=== PATIENT | male | born 1980 | race Two or more races ===

== ENCOUNTER 2017-02-18 06:15 | Emergency (ER) | payer OTHER ==
[~2017-02-18] VITALS: Ht 167.6 cm; Wt 72.6 kg
[~2017-02-18 06:15] MED LIST: ADVAIR 500-501 EACH INH; ALBUTEROL SULF8.5 GM INH; ALBUTEROL2.5 MG/3 M INH; SINGULAIR10 MG ORAL
[2017-02-18] MEDS ORDERED: NKM (06:29)
[2017-02-18 06:34] VITALS: BP 137/81
[2017-02-18] MEDS ORDERED: Ipratropium 0.02% Inh Soln 2.5ml UD HHN ONE ×2 (06:45→07:00)
[2017-02-18] MEDS ORDERED: Albuterol ud Inhalation HHN ONE ×2 (06:45→07:00)
--- NOTE | 2017-02-18 06:59 | Emergency Room Report ---
History of Present Illness General Chief Complaint: Asthma Source: Patient Present Illness HPI 36-year-old male presents ED complaining of cough x3 days. States cough is dry. Denies fevers or chills. Denies chest pain shortness of breath. Patient has known history of asthma but states he does not have any medication at this time. Denies sick contacts or recent travel. Denies smoking. No other aggravating or relieving factors. Denies any other associated symptoms Allergies: Coded Allergies: No Known Allergies (Unverified , 06/15/14) Patient History Past Medical History: asthma Past Surgical History: none Pertinent Family History: none Social History: Denies: smoking, alcohol use, drug use Immunizations: UTD Reviewed Nursing Documentation: PMH: Agreed, PSxH: Agreed Nursing Documentation-PMH Past Medical History: No History, Except For Hx Asthma: Yes Review of Systems All Other Systems: negative except mentioned in HPI Physical Exam Vital Signs Date Time Temp Pulse Resp B/P (MAP) Pulse Ox O2 Delivery O2 Flow Rate FiO2 02/18/17 06:25 97.9 76 16 132/83 97 02/18/17 06:34 Room Air 02/18/17 06:45 21 Sp02 EP Interpretation: reviewed, normal General Appearance: no apparent distress, alert, GCS 15, non-toxic Head: normocephalic, atraumatic Eyes: bilateral eye normal inspection, bilateral eye PERRL ENT: hearing grossly normal, normal pharynx, no angioedema, normal voice Neck: full range of motion, supple/symm/no masses Respiratory: chest non-tender, speaking full sentences, wheezing Cardiovascular #1: regular rate, rhythm, no edema Cardiovascular #2: 2+ carotid (R), 2+ carotid (L), 2+ radial (R), 2+ radial (L) , 2+ dorsalis pedis (R), 2+ dorsalis pedis (L) Gastrointestinal: normal bowel sounds, non tender, soft, non-distended, no guarding, no rebound Rectal: deferred Genitourinary: normal inspection, no CVA tenderness Musculoskeletal: back normal, gait/station normal, normal range of motion, non- tender Neurologic: alert, oriented x3, responsive, motor strength/tone normal, sensory intact, speech normal Psychiatric: judgement/insight normal, memory normal, mood/affect normal, no suicidal/homicidal ideation Reflexes: 3+ bicep (R), 3+ bicep (L), 3+ tricep (R), 3+ tricep (L), 3+ knee (R) , 3+ knee (L) Skin: normal color, no rash, warm/dry, well hydrated Lymphatic: no adenopathy Medical Decision Making Diagnostic Impression: Primary Impression: Asthma Qualified Codes: J45.901 - Unspecified asthma with (acute) exacerbation ER Course Hospital Course 36-year-old male presents to ED complaining of cough, wheezing Differential diagnoses include: URI, bronchitis, asthma/COPD, pneumonia Clinical course Patient placed on stretcher. After initial history, physical exam reveals an elderly male in no acute distress. Bilateral TM unremarkable. No pharyngeal erythema. No tonsillar exudates. No lymphadenopathy. Mild wheezing noted on exam, no signs of respiratory distress or retractions. Patient given Prednisone and albuterol treatment in ED with symptoms improved. Reassurance given Diagnosis - asthma Stable and discharged home with prescriptions for prednisone, cough syrup, albuterol. Instructed to followup with PMD. Return to ED if symptoms recur or worsen Last Vital Signs Date Time Temp Pulse Resp B/P (MAP) Pulse Ox O2 Delivery O2 Flow Rate FiO2 02/18/17 06:48 72 14 98 Room Air 21 02/18/17 06:34 98.2 137/81 Status: improved Disposition: HOME, SELF-CARE Condition: Stable Scripts Codeine/Promethazine Hcl* (PROMETHAZINE-CODEINE SYRUP*) 118 Ml Syrup 5 ML ORAL Q4H Y for For Cough, #118 ML 0 Refills Prov: CHANDU LESLIE M.D. 02/18/17 Prednisone* (PREDNISONE*) 20 Mg Tablet 40 MG ORAL DAILY, #10 TAB Prov: CHANDU LESLIE M.D. 02/18/17 Albuterol Sulfate* (ALBUTEROL SULFATE MDI*) 8.5 Gm Hfa.aer.ad 2 PUFF INH Q4H Y for cough/wheezing, #1 EA 0 Refills Prov: CHANDU LESLIE M.D. 02/18/17 Referrals: NON PHYSICIAN (PCP) CHANDU LESLIE M.D. Feb 18, 2017 06:59
[2017-02-18] MEDS ORDERED: PREDNISONE20 MG ORAL (07:42)
[2017-02-18] MEDS ORDERED: PROMETHAZINE-C118 M1 ORAL (07:42)
[2017-02-18] MEDS ORDERED: ALBUTEROL SULF8.5 GM INH (07:42)
[2017-02-18 07:50] VITALS: BP 137/81
== END 2017-02-18 07:56 | disposition home or self-care (01) ==
LOC: EMR 06:44
DX: J45.909 Unspecified asthma, uncomplicated (principal)
CPT/HCPCS: 94640; 94664; 99284

== ENCOUNTER 2017-11-03 08:25 | Emergency (ER) | payer OTHER ==
[~2017-11-03] VITALS: Ht 167.6 cm; Wt 72.6 kg
[~2017-11-03 08:25] MED LIST changes: +NKM; +PREDNISONE20 MG ORAL; +PROMETHAZINE-C118 M1 ORAL
[2017-11-03 08:27] VITALS: BP 136/74
[2017-11-03] MEDS: Albuterol ud Inhalation HHN SCH ×2 (09:01→09:16)
[2017-11-03] MEDS: Ipratropium 0.02% Inh Soln 2.5ml UD HHN SCH ×2 (09:01→09:16)
[2017-11-03] MEDS ORDERED: ALBUTEROL2.5 MG/3 M HHN (09:48)
[2017-11-03] MEDS ORDERED: PREDNISONE20 MG ORAL (09:48)
[2017-11-03] MEDS ORDERED: ADVAIR 500-501 EACH INH (09:48)
[2017-11-03] MEDS ORDERED: ALBUTEROL SULF8.5 GM INH (09:48)
[2017-11-03] MEDS ORDERED: SINGULAIR10 MG ORAL (09:48)
--- NOTE | 2017-11-03 09:54 | Emergency Room Report ---
History of Present Illness General Chief Complaint: Dyspnea/Respdistress Source: Patient Present Illness HPI 37-year-old male presents ED playing of shortness of breath. States he has history of asthma and has run out of his medications. Started 2 days ago. Getting worse. Denies fevers or chills. Denies cough. No other aggravating relieving factors. Denies any other associated symptoms Allergies: Coded Allergies: No Known Allergies (Unverified , 06/15/14) Patient History Past Medical History: asthma Past Surgical History: none Pertinent Family History: none Social History: Denies: smoking, alcohol use, drug use Immunizations: UTD Reviewed Nursing Documentation: PMH: Agreed; PSxH: Agreed Nursing Documentation-PMH Past Medical History: No History, Except For Hx Asthma: Yes Review of Systems All Other Systems: negative except mentioned in HPI Physical Exam Vital Signs Date Time Temp Pulse Resp B/P (MAP) Pulse Ox O2 Delivery O2 Flow Rate FiO2 11/03/17 08:20 97.7 77 18 136/74 95 Room Air 97.7 11/03/17 08:43 21 Sp02 EP Interpretation: reviewed, normal General Appearance: no apparent distress, alert, GCS 15, non-toxic Head: normocephalic, atraumatic Eyes: bilateral eye normal inspection, bilateral eye PERRL ENT: hearing grossly normal, normal pharynx, no angioedema, normal voice Neck: full range of motion, supple/symm/no masses Respiratory: chest non-tender, decreased breath sounds, speaking full sentences , wheezing Cardiovascular #1: regular rate, rhythm, no edema Cardiovascular #2: 2+ carotid (R), 2+ carotid (L), 2+ radial (R), 2+ radial (L) , 2+ dorsalis pedis (R), 2+ dorsalis pedis (L) Gastrointestinal: normal bowel sounds, non tender, soft, non-distended, no guarding, no rebound Rectal: deferred Genitourinary: normal inspection, no CVA tenderness Musculoskeletal: back normal, gait/station normal, normal range of motion, non- tender Neurologic: alert, oriented x3, responsive, motor strength/tone normal, sensory intact, speech normal Psychiatric: judgement/insight normal, memory normal, mood/affect normal, no suicidal/homicidal ideation Reflexes: 3+ bicep (R), 3+ bicep (L), 3+ tricep (R), 3+ tricep (L), 3+ knee (R) , 3+ knee (L) Skin: normal color, no rash, warm/dry, well hydrated Lymphatic: no adenopathy Medical Decision Making Diagnostic Impression: Primary Impression: Asthma exacerbation Qualified Codes: J45.901 - Unspecified asthma with (acute) exacerbation ER Course Hospital Course 37-year-old male presents to ED complaining of chest tightness, wheezing Differential diagnoses include: URI, bronchitis, asthma/COPD, pneumonia Clinical course Patient placed on stretcher. After initial history, physical exam reveals an male in no acute distress. Bilateral TM unremarkable. No pharyngeal erythema. No tonsillar exudates. No lymphadenopathy. Mild wheezing noted on exam, no signs of respiratory distress or retractions. Patient given Prednisone and albuterol/atrovent treatment in ED with symptoms improved. Discussed findings with patient. Patient is safe for discharge pending close outpatient follow-up. We'll provide refills for all of his asthma meds Diagnosis - asthma exacerbation Stable and discharged home with prescriptions for prednisone, cingular, albuterol inhaler, advair. Instructed to followup with PMD. Return to ED if symptoms recur or worsen Last Vital Signs Date Time Temp Pulse Resp B/P (MAP) Pulse Ox O2 Delivery O2 Flow Rate FiO2 11/03/17 09:38 76 20 99 Room Air 21 11/03/17 08:27 97.7 136/74 97.7 Status: improved Disposition: HOME, SELF-CARE Condition: Stable Scripts Prednisone* (PREDNISONE*) 20 Mg Tablet 40 MG ORAL DAILY, #10 TAB Prov: Dayo Harris MD 11/03/17 Albuterol Sulfate* (ALBUTEROL SULFATE HHN*) 2.5 Mg/3 Ml Vial.neb 2.5 MG HHN Q4H PRN for Shortness of Breath, #25 VIAL Prov: Dayo Harris MD 11/03/17 Albuterol Sulfate* (ALBUTEROL SULFATE MDI*) 8.5 Gm Hfa.aer.ad 2 PUFF INH Q6H, #1 EA 0 Refills Prov: Dayo Harris MD 11/03/17 Montelukast Sodium* (SINGULAIR*) 10 Mg Tablet 10 MG ORAL DAILY for 30 Days, TAB Prov: Dayo Harris MD 11/03/17 Fluticasone/Salmeterol (Advair 500-50 Diskus) 1 Each Disk.w.dev 1 PUFF INH EVERY 12 HOURS for 30 Days, EA Prov: Dayo Harris MD 11/03/17 Referrals: NOT CHOSEN IPA/MD,REFERRING (PCP) Patient Instructions: Asthma, Adult, [id number] Dayo Harris MD Nov 03, 2017 09:54
[2017-11-03 09:56] VITALS: BP 136/74
== END 2017-11-03 09:57 | disposition home or self-care (01) ==
LOC: EDBD 08:25 → EMR 09:47
DX: J45.901 Unspecified asthma with (acute) exacerbation (principal)
CPT/HCPCS: 94640; 94664; 99284; J7512